=== PATIENT | female | born 1965 | race Caucasian/White ===

== ENCOUNTER 2016-12-08 23:27 | Emergency (ER) | payer MEDICARE ==
[~2016-12-08] VITALS: Ht 157.5 cm; Wt 65.0 kg
[2016-12-08 23:28] VITALS: BP 110/73
[2016-12-08] MEDS ORDERED: IBUPROFEN 200 MG TABLET ONE (23:54)
[2016-12-08] MEDS ORDERED: HYDROcodone/APAP 5/325 TABLET ONE (23:54)
[2016-12-09] MEDS ORDERED: HYDROcodone/APAP 5/325 TABLET PO PRN
[2016-12-09] MEDS ORDERED: IBUPROFEN 200 MG TABLET PO ONE
== END 2016-12-09 01:03 | disposition home or self-care (01) ==
LOC: ED 23:59
DX: M79.641 Pain in right hand (principal); E11.9 Type 2 diabetes mellitus without complications; J45.909 Unspecified asthma, uncomplicated
CPT/HCPCS: 29125; 99284